=== PATIENT | male | born 1940 | race Caucasian/White ===

== ENCOUNTER 2021-07-28 17:26 | Emergency (ER) | payer BC, MEDICARE, OTHER ==
[~2021-07-28] VITALS: Ht 175.3 cm; Wt 93.2 kg
[2021-07-28 17:35] VITALS: BP 141/66
== END 2021-07-28 18:12 | disposition home or self-care (01) ==
LOC: ER 17:27
DX: R42 Dizziness and giddiness (principal); I10 Essential (primary) hypertension; I25.10 Atherosclerotic heart disease of native coronary artery without angina pectoris; E78.00 Pure hypercholesterolemia, unspecified; I25.2 Old myocardial infarction; Z86.73 Personal history of transient ischemic attack (TIA), and cerebral infarction without residual deficits; Z98.890 Other specified postprocedural states
CPT/HCPCS: 99282